=== PATIENT | female | born 1960 | race Caucasian/White ===

== ENCOUNTER 2024-02-19 08:56 | Day surgery (SDC) | payer MEDICARE, OTHER ==
[~2024-02-19] VITALS: Ht 162.6 cm; Wt 62.0 kg
[~2024-02-19 08:56] MED LIST: Lactated Ringer's 1,000 ML IV ONE; propofoL 50 ML IV ONE
[2024-02-19] MEDS ORDERED: Lactated Ringer's 1,000 ML IV ONE (10:09)
== END 2024-02-19 11:09 | disposition home or self-care (01) ==
LOC: ORSCSDS 08:56
PROVIDERS: Surgery
PROC: 0DJD8ZZ Inspection of Lower Intestinal Tract, Via Natural or Artificial Opening Endoscopic (ICD-10-PCS; principal; 2024-02-19 10:15)
DX: Z12.11 Encounter for screening for malignant neoplasm of colon (principal); K64.8 Other hemorrhoids; J45.909 Unspecified asthma, uncomplicated
CPT/HCPCS: J2704; J7120